=== PATIENT | male | born 1950 | race Caucasian/White ===

== ENCOUNTER 2017-01-07 00:01 | Outpatient (RCR) | payer MEDICARE, MEDICAID, SELFPAY ==
[2014-10-04 10:19] VITALS: BP 121/80
[~2017-01-07 00:01] MED LIST: ACET-2902 PO; ACET-66 PO; ADDE10 PO; AMLO-511 PO; ATOR10TA84 PO; BACL10TA PO; CLOZ100 PO; FLUV50 PO; GLIP5 PO; IBUP-2071 PO; LEVE500T53 PO; LEVO112T4 PO; LEVO175T9 PO; LISI-660 PO; LORA1TAB3 PO; METF500T4 PO; METO100XL PO; METO50TA12 PO; MULT-29 PO; OMEP20 PO; QUET200XR PO; TAMS0.4C32 PO; VENL-193 PO; VENL-68 PO
[2017-01-12 16:25] LABS: BASOPHILS % (AUTO) 0.8 % (0.0-2.0); EOSINOPHILS % (AUTO) 1.8 % (1.0-6.0); HEMATOCRIT 39.6 % (41-53); HEMOGLOBIN 13.4 g/dL (13.5-17.5); LYMPHOCYTES # (AUTO) 1.9 K/uL (1.0-4.8); LYMPHOCYTES % (AUTO) 36.9 % (22.0-44.0); MEAN CORPUSCULAR HEMOGLOBIN 30.4 pg (26.0-34.0); MEAN CORPUSCULAR HGB CONC 33.8 G/dL (31.0-37.0); MEAN CORPUSCULAR VOLUME 90 fL (80-100); MONOCYTES # (AUTO) 0.2 K/uL (0.1-1.0); MONOCYTES % (AUTO) 4.8 % (2.0-9.0); NEUTROPHILS # (AUTO) 2.9 K/uL (1.8-7.7); NEUTROPHILS % (AUTO) 55.7 % (40.0-70.0); PLATELET COUNT (AUTO) 174 K/uL (150-450); RED BLOOD CELL COUNT(AUTO) 4.41 MIL/uL (4.50-5.90); RED CELL DISTRIBUTION WIDTH 14.8 % (11.5-14.5); WHITE BLOOD COUNT (AUTO) 5.1 K/uL (4.5-11.0)
[2017-02-05 07:55] LABS: HEPATITIS C AB SCREEN <0.1 s/co ratio (0.0-0.9)
== END 2017-02-05 | disposition home or self-care (01) ==
LOC: IOPBV 00:01
PROVIDERS: ATTEND Psychiatry & Neurology Psychiatry
DX: F20.0 Paranoid schizophrenia (principal); F10.21 Alcohol dependence, in remission; F12.21 Cannabis dependence, in remission; E78.00 Pure hypercholesterolemia, unspecified; I10 Essential (primary) hypertension; I51.89 Other ill-defined heart diseases; J44.9 Chronic obstructive pulmonary disease, unspecified; J98.9 Respiratory disorder, unspecified; K21.9 Gastro-esophageal reflux disease without esophagitis; N40.0 Benign prostatic hyperplasia without lower urinary tract symptoms; E11.9 Type 2 diabetes mellitus without complications; E03.9 Hypothyroidism, unspecified; E34.9 Endocrine disorder, unspecified; Z87.891 Personal history of nicotine dependence
CPT/HCPCS: 86704; 86706; 86708; 86709; 86803; 87340; 90832; 90853

== ENCOUNTER → 2017-07-11 | Outpatient (CLI) | payer MEDICARE, OTHER ==
[~2017-07-11] MED LIST changes: -ACET-66 PO; -ADDE10 PO; -BACL10TA PO; -FLUV50 PO; -GLIP5 PO; -IBUP-2071 PO; -LEVO112T4 PO; +METO-558 PO; -METO100XL PO; -METO50TA12 PO; -MULT-29 PO; -QUET200XR PO; -VENL-193 PO; -VENL-68 PO
[2017-07-11 15:36] LABS: BASOPHILS % (AUTO) 0.6 % (0.0-2.0); EOSINOPHILS % (AUTO) 1.6 % (1.0-6.0); HEMATOCRIT 43.7 % (41-53); HEMOGLOBIN 14.6 g/dL (13.5-17.5); LYMPHOCYTES # (AUTO) 2.6 K/uL (1.0-4.8); LYMPHOCYTES % (AUTO) 44.3 % (22.0-44.0); MEAN CORPUSCULAR HEMOGLOBIN 29.8 pg (26.0-34.0); MEAN CORPUSCULAR HGB CONC 33.4 G/dL (31.0-37.0); MEAN CORPUSCULAR VOLUME 89 fL (80-100); MONOCYTES # (AUTO) 0.4 K/uL (0.1-1.0); NEUTROPHILS # (AUTO) 2.8 K/uL (1.8-7.7); NEUTROPHILS % (AUTO) 47.5 % (40.0-70.0); PLATELET COUNT (AUTO) 177 K/uL (150-450); RED BLOOD CELL COUNT(AUTO) 4.89 MIL/uL (4.50-5.90); RED CELL DISTRIBUTION WIDTH 14.6 % (11.5-14.5)
== END | disposition home or self-care (01) ==
LOC: LABMN 15:04
PROVIDERS: ATTEND Psychiatry & Neurology Psychiatry
DX: F20.9 Schizophrenia, unspecified (principal)